=== PATIENT | female | born 1970 | race Caucasian/White ===

== ENCOUNTER → 2016-12-01 | Outpatient (CLI) | payer OTHER ==
--- NOTE | 2016-12-03 16:39 | MAM ---
EXAM DESCRIPTION: 3D Screening BILATERAL : Digital Mammography. CLINICAL HISTORY: 46 years Female SCREENING no complaints. Remote family history of breast cancer. Hysterectomy. No HRT. "I have dense breast tissue". COMPARISON: Baseline study at this facility. No prior reports available. TECHNIQUE: Bilateral CC and MLO projection full-field images, 3-D tomosynthesis digital mammographic technique. Also bilateral synthesized CC/ MLO full-field images. CAD not utilized. FINDINGS: The breast parenchymal density pattern is: Extremely dense breast tissue, which lowers the sensitivity of mammography. No skin thickening or nipple retraction numerous microcalcifications scattered throughout both breasts. Large mass with relatively well-circumscribed lobulated borders at the 600 clock position of the middle third and posterior third of the right breast. Possible cyst or lymph node or fibroadenoma. Mass density at the 1200 clock position of the posterior third of the left breast, 7 cm from the nipple. Possibly cyst lymph node or fibroadenoma Group of heterogeneous calcifications anterior to this mass in the middle third at the proximal ascending clock position. Another group of heterogeneous calcifications at the 5:00 position of the posterior third of the left breast.. IMPRESSION: BI-RADS CATEGORY: 0 - INCOMPLETE- Need additional imaging evaluation. FOLLOW-UP: Recall for additional imaging: Digital orthogonal spot magnification images of the calcifications in the middle third and posterior third of the left breast. Targeted ultrasound of the mass densities in the bilateral breasts.. Written communication concerning the IMPRESSION and Follow-up, will be mailed to the patient and referring health care provider. Electronically signed by: Skyler Prescott MD 12/03/2016 4:38 PM CDT
== END ==
LOC: MAMMO 09:37
PROVIDERS: ATTEND Obstetrics & Gynecology
DX: Z12.31 Encounter for screening mammogram for malignant neoplasm of breast (principal)
CPT/HCPCS: 77063; G0202

== ENCOUNTER → 2016-12-14 | Outpatient (CLI) | payer BC, OTHER ==
--- NOTE | 2016-12-15 10:28 | MAM ---
EXAM DESCRIPTION: 3D Diagnostic, Left CLINICAL HISTORY: 46 yearsFemaleABNORMAL MAMMO . Dense breasts and multiple microcalcifications.. COMPARISON: Bilateral screening 3-D breast tomosynthesis 12/01/2016.. Reports from prior examinations also reviewed. TECHNIQUE: Left breast CC , LM, projection full-field images, 3-D tomosynthesis digital mammographic technique. Also right breast synthesized CC and LM full-field images. 2-D digital left breast CC and LM magnification projections upper outer quadrant. CAD not utilized. FINDINGS: Left breast parenchymal density pattern is: Extremely dense breast tissue, which lowers the sensitivity of mammography. No skin thickening or nipple retraction . Microcalcifications of various shapes scattered throughout the dense fibroglandular tissue more prominent anterior middle third and in the upper outer quadrant, left breast. No focal, stellate mass or density, focal asymmetry , and no suspicious groups of microcalcifications left breast. IMPRESSION: BI-RADS CATEGORY: 3 - PROBABLY BENIGN. Management: Short interval (6-month) follow-up or consider bilateral breast MRI with gadolinium IV contrast. The FINDINGS and the follow-up plan were reviewed in person with the patient after the ultrasound examination. Written communication explaining the results and follow-up will be mailed to the patient and referring care provider. CRITICAL COMMUNICATION: The critical value was discussed directly by phone with Dr. Harlan Marrero at approximately 1020 hours, on December 15, 2016. Electronically signed by: Skyler Prescott MD 12/15/2016 10:27 AM CDT
== END | disposition home or self-care (01) ==
LOC: MAMMO 16:14
PROVIDERS: ATTEND Obstetrics & Gynecology
DX: R92.8 Other abnormal and inconclusive findings on diagnostic imaging of breast (principal)
CPT/HCPCS: G0206; G0279

== ENCOUNTER → 2017-02-03 | Outpatient (CLI) | payer BC | END | disposition home or self-care (01) | LOC: LAB.O 10:16 | PROVIDERS: ATTEND Family Medicine | DX: R19.7 Diarrhea, unspecified (principal) ==

== ENCOUNTER → 2017-03-09 | Outpatient (CLI) | payer BC | LOC: GMAJ 18:03 | PROVIDERS: ATTEND Family Medicine | DX: Z79.899 Other long term (current) drug therapy (principal) ==

== ENCOUNTER → 2017-11-02 | Outpatient (CLI) | payer BC | LOC: GMAJ 10:49 | PROVIDERS: ATTEND Family Medicine | DX: Z00.00 Encounter for general adult medical examination without abnormal findings (principal) ==

== ENCOUNTER → 2017-11-10 | Outpatient (CLI) | payer BC ==
--- NOTE | 2017-11-10 17:51 | MRI ---
EXAM DESCRIPTION: Brain w/oContrast CLINICAL HISTORY: MIGRAINE COMPARISON: None available TECHNIQUE: Non contrast MRI of the brain is performed according to our usual protocol including multiplanar multi sequence technique. FINDINGS: Sagittal T1 images show intact corpus callosum. Normal pituitary gland with normal T1 appearance of the steven and medulla and upper cervical cord. Normal signal intensity within the clivus and calvarium. Axial T2 fat sat images reveal preservation of intracranial vascular flow voids. Normal bean matter and white matter T2 signal intensity. Normal ventricles with normal gyral and sulcal fold pattern. The globes appear intact and symmetrical. No abnormal fluid signal in the paranasal sinuses, tympanic cavities or mastoid air cells. Axial flair images show normal signal intensity of the bean matter and the white matter. No microvascular ischemic changes. Diffusion weighted images are negative for focal intense increased signal intensity in the brain parenchyma to suggest restricted diffusion. ADC mapping is negative. Axial T1 images show normal bean-white matter differentiation. No high signal intensity hemorrhagic lesion of the brain parenchyma. No subdural hematoma. Axial susceptibility weighted images are negative for focal signal loss to suggest abnormal brain parenchymal calcification or hemosiderin deposition. IMPRESSION: Normal MRI examination of the brain. Electronically signed by: Carson Dhaliwal MD 11/10/2017 5:50 PM CDT
== END ==
LOC: MRI 13:00
PROVIDERS: ATTEND Family Medicine
DX: G43.109 Migraine with aura, not intractable, without status migrainosus (principal)

== ENCOUNTER → 2018-01-10 | Outpatient (CLI) | payer BC ==
--- NOTE | 2018-01-13 08:04 | MAM ---
EXAM DESCRIPTION: 3D Screening BILATERAL : Digital Mammography. CLINICAL HISTORY: 47 years Female SCREENING . No complaints or personal history of breast cancer. Remote family history of breast cancer. Late childbirth. Hysterectomy 3 years ago.. Normal breast MRI at outside imaging facility. Lifetime risk of developing breast cancer (Tyrer-Cuzick model)(%): 12.7. COMPARISON: prior. No prior reports available. TECHNIQUE: Bilateral CC and MLO projection full-field images, digital tomosynthesis mammographic technique. Bilateral digital 2-D full-field MLO images. CAD not available for tomosynthesis or 2-D images. FINDINGS: The breast parenchymal density pattern is: Extremely dense breast tissue, which lowers the sensitivity of mammography. No skin thickening or nipple retraction. Again noted at the 6:00 position of the middle third of the right breast 5.6 cm from the skin surface is a well-circumscribed mass with the same density as the surrounding dense fibroglandular tissues. This mass has a trefoil shape and measures 4.8 x 4.1 x 3.8 cm. The mass was also seen on the prior study slightly changed in shape but not in size. Consistent with a cyst, group of cysts, or multiloculated cysts. Numerous bilateral punctate microcalcifications. Groups of calcifications are again noted in the left breast with the most conspicuous groups in the middle third at the 3:00 position, and the posterior third at the 2:30 clock position. Several groups of microcalcifications at the 7:00 and 8:00 positions in the posterior third of the inferior right breast. No new focal, stellate mass or density, focal asymmetry , and no new suspicious microcalcifications bilaterally. Stable mammograms compared to prior study. IMPRESSION: Benign exam. BIRAD CATEGORY: 2 BENIGN FINDINGS. RECOMMENDATIONS: FOLLOW UP: Routine digital bilateral mammographic screening, one year interval from December 2017. Written communication explaining the IMPRESSION and follow-up, will be mailed to the patient and referring health care provider. According to the [employer], yearly mammograms are recommended starting at age 40 and continuing as long as a woman is in good health. Any breast change noted on a breast self-exam should be reported promptly to the patient's healthcare provider. Breast MRI is recommended for women with an approximately 20-25% or greater lifetime risk of breast cancer, including women with a strong family history of breast or ovarian cancer and women who have been treated for Hodgkin's disease. A negative mammographic report should not delay tissue diagnosis in patients with significant clinical history or physical findings. Extremely dense breast tissue limits the sensitivity of digital mammography. Electronically signed by: Skyler Prescott MD 01/13/2018 8:03 AM [facility]
== END ==
LOC: MAMMO 15:00
PROVIDERS: ATTEND Family Medicine
DX: Z12.31 Encounter for screening mammogram for malignant neoplasm of breast (principal)

== ENCOUNTER → 2018-12-19 | Outpatient (CLI) | payer BC | LOC: GMAJ 17:12 | PROVIDERS: ATTEND Family Medicine | DX: R19.7 Diarrhea, unspecified (principal) ==

== ENCOUNTER → 2019-01-22 | Outpatient (CLI) | payer BC ==
--- NOTE | 2019-01-23 18:06 | MAM ---
EXAM DESCRIPTION: 3D Screening BILATERAL : Digital Mammography. CLINICAL HISTORY: 48 years Female SCREENING . No complaints. No personal history of breast cancer. Remote family history of breast cancer. Menarche age 12. Childbirth age 34. Hysterectomy unknown. No HRT. Lifetime risk of developing breast cancer (Tyrer-Cuzick model)(%): 12.5. COMPARISON: Bilateral screening digital breast tomosynthesis 10 January 2018 and 01 December 2016. Diagnostic left breast tomosynthesis 14 December 2016.. TECHNIQUE: Bilateral CC and MLO projection full-field images, digital tomosynthesis mammographic technique. Bilateral digital 2-D full-field MLO images. CAD not available for tomosynthesis or 2-D images. FINDINGS: The breast parenchymal density pattern is: Extremely dense breast tissue, which lowers the sensitivity of mammography. No skin thickening or nipple retraction. Multiple bilateral microcalcifications associated with the dense tissues. Bilateral groups of microcalcifications. Bilateral axillary lymph nodes. Bilateral architectural distortion associated with the dense fibroglandular tissues posterior third, near the posterior nipple line, better visualized on the CC images. A large cystlike mass approximately 3 x 4 cm in the middle third of the right breast on the prior study has decreased significantly in size. Mass density in the posterior third at the 9:00 position has increased in size. Anterior medial right breast cyst has decreased in size. Possible Increase in number in microcalcifications in the middle third and posterior third of the upper outer quadrant of the left breast where groups of microcalcifications were noted previously. No new focal, stellate mass or density, left breast. no suspicious microcalcifications right breast. IMPRESSION: BI-RADS CATEGORY: 0 - INCOMPLETE- Need additional imaging evaluation. FOLLOW-UP: Recall for additional imaging: Orthogonal magnification images of the calcifications in the upper outer quadrant of the left breast. Directed right breast ultrasound in the region of interest.. Written communication concerning the IMPRESSION and Follow-up, will be mailed to the patient and referring health care provider. Electronically signed by: Skyler Prescott MD 01/23/2019 6:05 PM [facility]
== END ==
LOC: MAMMO 16:00
PROVIDERS: ATTEND Family Medicine
DX: Z12.31 Encounter for screening mammogram for malignant neoplasm of breast (principal)

== ENCOUNTER → 2019-02-12 | Outpatient (CLI) | payer BC ==
--- NOTE | 2019-02-12 16:43 | MAM ---
EXAM DESCRIPTION: 3D Diagnostic, Bilateral (accession [id number]), digital mammography. Breast,Bilateral (accession [id number]): Ultrasound CLINICAL HISTORY: 48 yearsFemaleABNORMAL MAMMO groups of microcalcifications left breast. Right breast mass. Bilateral Breast MRI without and with gadolinium IV contrast was negative. Patient had reaction to gadolinium: weakness and drowsiness for almost 24 hours. Genetic testing: negative for BRCA-1 and BRCA-2 breast cancer genes. Lifetime risk of developing breast cancer (Tyrer-Cuzick model)(%): 12.5. COMPARISON: Bilateral screening digital breast tomosynthesis 22 January 2019. TECHNIQUE: Bilateral LM projection full-field images, digital tomosynthesis technique. Bilateral 2-D digital full-field images: MLO projection. Also spot digital magnification upper outer quadrant mid and posterior third left breast in the MLO and CC projections. CAD not available.. Transcutaneous scanning of the bilateral breasts utilizing bean-scale and Doppler modes. Scanning performed by the industrial maintenance instructor ; observation by Dr. Prescott. FINDINGS: The breast parenchymal density pattern is: Extremely dense breast tissue, which lowers the sensitivity of mammography. No skin thickening or nipple retraction again noted are numerous microcalcifications bilaterally but more prevalent in the middle and posterior third of the upper-outer quadrant of the left breast and along the posterior nipple line of the left breast. Magnification images show no abnormal groups of microcalcifications. No new focal, stellate mass or density, focal asymmetry , and no suspicious microcalcifications bilaterally. Ultrasound: Scanning of the posterior third of the right breast at the 9:00 position. Mostly fibroglandular tissues with minimal fatty replacement. Deep within the tissues and partially surrounded by fatty echoes is an anechoic structure measuring 13 x 10 mm with wider than tall orientation posterior wall and acoustic enhancement. Nonvascular. No dominant solid mass or large calcifications. Scanning of the upper outer quadrant of the left breast and adjacent to the posterior nipple line. Mostly fibroglandular tissues with minimal fatty replacement. Multiple anechoic cysts with circumscribed margins posterior wall enhancement and posterior acoustic enhancement. Several cysts are seen: 5 x 8 x 8.0 mm, 8.8 x 8.7 mm, 6.6 x 7.6 mm. These are all surrounded by mostly fibroglandular tissues. No dominant solid mass, no large calcifications. Small echogenic objects are most likely calcifications. IMPRESSION: Benign exam. Right breast cyst. Bilateral predominantly fibroglandular tissues. Fibrocystic tissues and multiple cysts left breast. BIRAD CATEGORY: 2 BENIGN FINDINGS. RECOMMENDATIONS: FOLLOW UP: Routine digital bilateral mammographic screening, one year interval from January 2019. Written communication explaining the IMPRESSION and follow-up, will be mailed to the patient and referring health care provider. The FINDINGS and the FOLLOW-UP plan were reviewed in person with the patient after the examination. According to the [employer], yearly mammograms are recommended starting at age 40 and continuing as long as a woman is in good health. Any breast change noted on a breast self-exam should be reported promptly to the patient's healthcare provider. Breast MRI is recommended for women with an approximately 20-25% or greater lifetime risk of breast cancer, including women with a strong family history of breast or ovarian cancer and women who have been treated for Hodgkin's disease. A negative mammographic report should not delay tissue diagnosis in patients with significant clinical history or physical findings. Extremely dense breast tissue limits the sensitivity of digital mammography. Electronically signed by: Skyler Prescott MD 02/12/2019 4:41 PM [facility]
== END ==
LOC: MAMMO 12:01
PROVIDERS: ATTEND Family Medicine
DX: R92.8 Other abnormal and inconclusive findings on diagnostic imaging of breast (principal); N60.01 Solitary cyst of right breast; N60.12 Diffuse cystic mastopathy of left breast
CPT/HCPCS: 76641; 77066; G0279

== ENCOUNTER → 2019-04-02 | Outpatient (CLI) | payer BC | LOC: LAB.O 12:53 | PROVIDERS: ATTEND Surgery | DX: R14.0 Abdominal distension (gaseous) (principal) ==

== ENCOUNTER 2019-04-06 05:46 | Day surgery (SDC) | payer BC ==
[2019-04-06] MEDS ORDERED: SODIUM CHLORIDE 0.9% 50 ML VIAL ONE (07:00)
[2019-04-06] MEDS ORDERED: PROPOFOL 200 MG/20 ML VIAL IV ONE (07:00)
[2019-04-06] MEDS ORDERED: LACTATED RINGERS 1,000 ML ONE (07:03)
[2019-04-06] MEDS ORDERED: KETAMINE HCL 100 MG/ML VIAL ONE (08:19)
--- NOTE | 2019-04-06 09:29 | OP ---
DATE OF PROCEDURE: 04/06/19 PREOPERATIVE DIAGNOSIS: 1. History of recurrent C. difficile. 2. Abdominal pain. 3. Diarrhea. POSTOPERATIVE DIAGNOSIS: 1. History of recurrent C. difficile. 2. Abdominal pain. 3. Diarrhea. PROCEDURE: 1. Colonoscopy. SURGEON: Harlan Gutierrez MD FINDINGS: Normal colon. No evidence of active inflammation, polyps, etc. COMPLICATIONS: None. ESTIMATED BLOOD LOSS: None. CONDITION: Stable. PLAN: Discharge. Make some dietary recommendations. INDICATION: The patient had the above history and was here for a screening colonoscopy. The prep went well according to the patient. PROCEDURE: General anesthesia was induced in the lateral position. Digital rectal exam was normal with normal sphincter tone. The colonoscope was introduced. The colonoscope was then passed. The left side of the colon was quite redundant, but ultimately got to the cecum without difficulty. I noticed no evidence of right sided inflammation. There were no polyps, no significant diverticula and upon withdrawal, no strictures were seen. Again, no abnormalities at all, so no indication for random biopsies in my estimation. Retroflexion was also normal. The patient tolerated the procedure. For recurrent C. difficile, we will focus on diet and proper nutrition to try to optimize her immune system. #[id number] [facility]
[2019-04-06 09:51] VITALS: BP 139/97; TEMP 97; O2SAT 100
== END 2019-04-06 09:40 | disposition home or self-care (01) ==
LOC: AMB 05:46
PROVIDERS: ATTEND Surgery
DX: R10.9 Unspecified abdominal pain (principal); R19.7 Diarrhea, unspecified; F32.9 Major depressive disorder, single episode, unspecified; Z87.19 Personal history of other diseases of the digestive system; Z88.2 Allergy status to sulfonamides; Z88.8 Allergy status to other drugs, medicaments and biological substances; Z90.710 Acquired absence of both cervix and uterus; Z90.49 Acquired absence of other specified parts of digestive tract; Z79.899 Other long term (current) drug therapy
CPT/HCPCS: 00811; 45378; A4216; J3490; J7120